=== PATIENT | female | born 1980 | race Hispanic/Latino ===

== ENCOUNTER 2018-03-12 10:17 | Inpatient (IN) | payer SELFPAY ==
[2018-03-12 11:01] LABS: #Lymphocytes 0.6 thou/uL (1.20-3.40); #Monocytes 0.1 thou/uL (0.11-0.59); #Neutrophils 5.4 thou/uL (1.40-6.50); %Basophils 0.5 % (0.0-1.0); %Eosinophils 0.3 % (0.0-10.0); %Lymphocytes 9.9 % (21.0-51.0); %Monocytes 1.3 % (0.0-10.0); Hemoglobin 13.4 g/dL (12.0-16.0); Mean Corpuscular HGB CONC 33.9 g/dL (32.0-36.0); Mean Corpuscular Hemoglobin 30.9 pg (27.0-31.0); Mean Corpuscular Volume 91.1 fl (81.0-99.0); Mean Platelet Volume 7.5 fL (7.4-10.4); Platelet Count 202 thou/uL (130-400); RBC Distribution Width 12.4 % (11.5-14.5); Red Blood Cell (RBC) Count 4.34 mill/uL (4.20-5.40); White Blood Cell (WBC) Count 6.1 thou/uL (4.8-10.8)
[2018-03-12 11:19] LABS: ALT (SGPT) 10 U/L (8-55); AST (SGOT) 11 U/L (5-34); Alkaline Phosphatase 72 U/L (40-150); Anion Gap 20 mmol/L (10-20); BUN (Urea Nitrogen) 12 mg/dL (7.0-18.7); Bilirubin, Total 0.3 mg/dL (0.2-1.2); Calc. Creatinine Clearance 0 mL/min (70-130); Calcium 8.6 mg/dL (7.8-10.44); Carbon Dioxide 13 mmol/L (22-29); Chloride 106 mmol/L (98-107); Estimated GFR-MDRD 60; Globulin 4.1 g/dL (2.4-3.5); Glucose 163 mg/dL (70-105); Potassium 3.5 mmol/L (3.5-5.1); Protein, Total 8.1 g/dL (6.0-8.3); Sodium 135 mmol/L (136-145)
--- NOTE | 2018-03-12 13:10 | ULT ---
PELVIC ULTRASOUND: Date: 03/12/18 COMPARISON: None. HISTORY: Pelvic pain, . TECHNIQUE: Multiplanar Bhandari scale sonographic imaging of the pelvis is obtained with transabdominal and endovagi nal imaging. Ovaries are assessed with color flow and spectral analysis. FINDINGS: Uterus measures in the 11.0 x 5.8 cm range. Right ovary measures 2.3 x 1.6 x 1.3 cm. Left ovary measu res 3.1 x 2.2 x 2.3 cm. Blood flow is seen within both ovaries. An intrauterine gestational sac is noted. A pole is seen. No yolk sac is noted. No free fluid i s seen and there is no subchorionic hemorrhage identified. heart tones could not be obtained at this time. Biometry: CRL: 0.6 cm, 6 weeks/2 days GSD: 1.3 cm, 6 weeks/1 day Average age based on ultrasound is 6 weeks/2 days with estimated date of delivery on 11/03/18. IMPRESSION: Intrauterine gestational sac containing a pole. No heart rate could be obtained at this t alannah. This may be too early to obtain a heart rate. Close follow-up with quantitative beta HCG a t this time and in 48 hours is advised. In addition, a follow-up ultrasound in 48 hours may be benefi cial. CODE T. POS: [facility]
[2018-03-12] MEDS: Sodium Chloride 0.9% 1,000 ML IV SCH ×4 (13:15→22:20)
[2018-03-12 16:04] VITALS: BMI 36.9
[2018-03-12] MEDS: Ondansetron HCl/PF 4 MG/2 ML Vial SLOW IVP SCH ×2 (17:40→23:29)
[2018-03-12] MEDS ORDERED: HumaLOG 300 UNITS/3 ML VIAL SC PRN (17:49)
[2018-03-12] MEDS ORDERED: Ondansetron ODT 4 MG TAB PO PRN (17:49)
[2018-03-12] MEDS ORDERED: Dextrose 50% Abboject 50 ML SYRINGE SLOW IVP PRN (17:49)
[2018-03-12] MEDS ORDERED: Dextrose 5% in Water 1,000 ML IV PRN (17:49)
[2018-03-12] MEDS ORDERED: Ondansetron HCl/PF 4 MG/2 ML Vial IVP PRN (17:49)
[2018-03-12] MEDS: HumaLOG 300 UNITS/3 ML VIAL SC PRN (18:37)
[2018-03-12] MEDS: HYDROcodone/Acetaminophen 5/325 mg Tablet PO PRN (18:41)
[2018-03-12 18:46] LABS: Lactic Acid 1.2 mmol/L (0.5-2.2)
[2018-03-12 18:51] LABS: Anion Gap 21 mmol/L (10-20); BUN (Urea Nitrogen) 11 mg/dL (7.0-18.7); Calc. Creatinine Clearance 88 mL/min (70-130); Calcium 7.8 mg/dL (7.8-10.44); Carbon Dioxide 11 mmol/L (22-29); Chloride 104 mmol/L (98-107); Estimated GFR-MDRD 65; Glucose 300 mg/dL (70-105); Potassium 4.5 mmol/L (3.5-5.1); Sodium 131 mmol/L (136-145)
[2018-03-12 22:05] LABS: Anion Gap 18 mmol/L (10-20); BUN (Urea Nitrogen) 11 mg/dL (7.0-18.7); Calc. Creatinine Clearance 94 mL/min (70-130); Calcium 7.9 mg/dL (7.8-10.44); Carbon Dioxide 13 mmol/L (22-29); Chloride 105 mmol/L (98-107); Estimated GFR-MDRD 70; Glucose 257 mg/dL (70-105); Potassium 4.2 mmol/L (3.5-5.1); Sodium 132 mmol/L (136-145)
[2018-03-12] MEDS: Famotidine 20 MG TAB PO SCH (22:21)
[2018-03-12] MEDS ORDERED: Promethazine HCl 12.5 MG in Sodium Chloride 0.9% 50 ML IVPB PRN (23:54)
[2018-03-13] MEDS: HYDROcodone/Acetaminophen 5/325 mg Tablet PO PRN ×3 (00:01→22:42)
--- NOTE | 2018-03-13 00:58 | HP ---
DATE OF ADMISSION: 03/12/2018 PRIMARY CARE PROVIDER: Divina in [place], [place]. CHIEF COMPLAINT: Abdominal pain with nausea and vomiting. HISTORY OF PRESENT ILLNESS: This is a 37-year-old female, who initially presented to [facility] Emergency Department complaining of persistent and severe left lower quadrant abdominal pain with associated nausea and vomiting. The patient complained of abdominal pain over the last 2-3 days, wo rsening, causing her to seek medical attention. The patient denied any recent trauma, injury, travel history, or family members with similar symptoms. The patient states her last bowel movement was wi thin the last 24 hours and apparently normal. The patient had noticed some blood when wiping herself after urinating. The patient states the pain is localized in the left lower section of her abdomen with some radiation into the flank region. The patient has some associated nausea and vomiting with the episodes of pain. The patient denied taking any specific home remedies to relieve her symptoms. The patient denied any prominent dysuria or urinary tract infections, but does state she has a histo ry of kidney stones in the past; however, was vague on the exact time of the condition. In the emerg ency room, the patient underwent general evaluation including screening metabolic survey showing hype rglycemia and concern for early DKA with elevated beta hydroxybutyrate level and a decreased CO2. Th e patient received aggressive IV fluid hydration as well as antiemetics. The patient also received m orphine sulfate with mild symptomatic relief. The patient underwent a pelvic ultrasound after initia l serum hCG was positive. Ultrasound did show a sac of approximately 6 weeks' gestation in the intrauterine position. No heart rate was detected, however. Patient states she has 6 childre n and 4 previous miscarriages. The patient admits to a longstanding history of diabetes mellitus, cu rrently taking metformin on a regular basis. The patient also has a history of hypothyroidism, on ch ronic levothyroxine, and low dose lisinopril for hypertension. PAST MEDICAL HISTORY: 1. Diabetes mellitus, type 2, on oral hypoglycemics. 2. Hypertension. 3. Hypothyroidism. PAST SURGICAL HISTORY: Reviewed and negative. OBSTETRIC OB HISTORY: 11, para 6 with 4 spontaneous abortions. CURRENT MEDICATIONS: 1. Metformin 1000 mg p.o. b.i.d. 2. Levothyroxine 100 mcg 1 tab p.o. daily, patient unsure of dose. 3. Lisinopril 10 mg p.o. daily. ALLERGIES: PENICILLIN. FAMILY HISTORY: Positive for diabetes. SOCIAL HISTORY: Patient is , accompanied by her spouse and daughter in the hospital. No alco hol, tobacco or illicit drug use. 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 REVIEW OF SYSTEMS: The following complete review of systems was negative, unless otherwise mentioned in the HPI or below: Constitutional: Weight loss or gain, ability to conduct usual activities. Sk in: Rash, itching. Eyes: Double vision, pain. ENT/Mouth: Nose bleeding, neck stiffness, pain, te nderness. Cardiovascular: Palpitations, dyspnea on exertion, orthopnea. Respiratory: Shortness of breath, wheezing, cough, hemoptysis, fever, or night sweats. Gastrointestinal: Poor appetite, abdo jyotsna pain, heartburn, nausea, vomiting, constipation, or diarrhea. Genitourinary: Urgency, frequen cy, dysuria, nocturia. Musculoskeletal: Pain, swelling. Neurologic/Psychiatric: Anxiety, depressi on. Allergy/Immunologic: Skin rash, bleeding tendency. Otherwise, negative except as stated per HP I. PHYSICAL EXAMINATION: VITAL SIGNS: On admission, blood pressure 166/103, pulse 166, respiratory rate 26, temperature 99.4 degrees Fahrenheit, O2 saturation 98% on room air. GENERAL APPEARANCE: This is a 37-year-old female, alert, and answers questions in moderate distress. HEENT EXAM: Oral mucosa dry appearing. Nares patent. Pupils equal, round, and reactive to light an d accommodation. Extraocular muscles are intact. Grimacing on exam. NECK: Supple, no adenopathy, no thyromegaly. CHEST: Lungs are clear to auscultation bilaterally. CARDIOVASCULAR EXAM: S1 and S2 with tachycardia. No murmur, rub or gallop appreciated. ABDOMEN: Tender to palpation diffusely with increased tenderness noted in the left lower quadrant an d left flank and CVA region. Mild guarding noted. Bowel sounds are positive, but diminished. No pa lpable mass. EXTREMITIES: Warm and dry with fair turgor. No clubbing, cyanosis or asymmetric edema appreciated. Pulses palpable distally at the dorsalis pedis and posterior tibial arteries bilaterally. Capillary refill less than 2 seconds. NEUROLOGIC EXAM: Cranial nerves II-XII are grossly intact. No focal or lateralizing signs appreciat ed. The patient not observed ambulatory during the exam. PERTINENT LABORATORY AND X-RAY FINDINGS: CO2 of 13, creatinine 1.03. LFTs within normal limits. Se rum beta hCG positive. Total beta hCG 11,690 and lipase 31. Lactic acid level less than 1.5. Initi al CBC showed a white blood cell count of 13.9, hemoglobin 13.7, hematocrit 40.5, platelet count 213 with 88% neutrophils. Urinalysis showed positive glucose, ketones, and protein. Urine microscopy sh ows 0-2 wbcs per high power field and 2-5 rbcs per high powered field. No bacteria noted. Rare hyal in casts. Pelvic ultrasound dated 03/12/2018 showed intrauterine gestational sac at 6 weeks plus or minus 2 days with estimated date of delivery 11/03/2018. Bilateral ovaries with normal blood flow. No subchorionic hemorrhage noted. heart tones not obtained. ASSESSMENT AND PLAN: 1. Diabetic ketoacidosis, mild. We will continue IV fluid hydration with overall improvement in glu cose trend with IV fluids. No current need for insulin infusion. Repeat beta hydroxybutyrate level in the a.m. Check A1c level. Continue modified diabetic ketoacidosis protocol. 2. Left lower quadrant abdominal pain, exact etiology is unclear currently. We will continue suppor tive management including morphine sulfate 2 mg IV q.4 hours p.r.n. Continue antiemetics as clinical ly indicated. Continue IV fluids at 200 mL per hour. Differential includes potential ureterolithias is versus diverticulitis or potential infectious process. We will continue to monitor clinical respo nse to supportive management. 3. Intrauterine of 6 weeks' gestation. We will consult OB hospitalist for evaluation. Re commend serial quantitative hCG q.48 hours given the patient's presentation and questionable threaten ed . 4. Diabetes mellitus, type 2. Continue insulin sliding scale for reflexive coverage. Hold metformi n. Check A1c level in the a.m. ADA diet when tolerating p.o. 5. Metabolic acidosis. Suspect multifactorial in conjunction with presentation with early diabetic ketoacidosis, dehydration, and ongoing metformin use. We will repeat CO2 level in the a.m. 6. Hypothyroidism. Check TSH level in the a.m. Confirm home levothyroxine dose. 7. Prophylaxis. Sequential compression devices while in bed. Pepcid 20 mg p.o. b.i.d. 8. Code status is FULL. Surrogate medical decision maker is patient's spouse.
[2018-03-13] MEDS: Sodium Chloride 0.9% 1,000 ML IV SCH ×5 (03:00→23:10)
[2018-03-13 05:32] LABS: Band 22 % (5-11); Hemoglobin 11.2 g/dL (12.0-16.0); Lymphocytes 19 % (21-51); MDiff Complete? YES; Mean Corpuscular HGB CONC 33.7 g/dL (32.0-36.0); Mean Corpuscular Hemoglobin 31.4 pg (27.0-31.0); Mean Corpuscular Volume 92.9 fl (81.0-99.0); Mean Platelet Volume 7.8 fL (7.4-10.4); Monocytes 4 % (0-10); Neutrophil 55 % (42-75); PLT Morphology Comment Appears Adequate; Platelet Count 187 thou/uL (130-400); RBC Distribution Width 12.6 % (11.5-14.5); Red Blood Cell (RBC) Count 3.56 mill/uL (4.20-5.40); White Blood Cell (WBC) Count 12.2 thou/uL (4.8-10.8)
[2018-03-13 05:47] LABS: ALT (SGPT) 8 U/L (8-55); AST (SGOT) 9 U/L (5-34); Albumin 2.9 g/dL (3.5-5.0); Alkaline Phosphatase 56 U/L (40-150); Anion Gap 17 mmol/L (10-20); BUN (Urea Nitrogen) 11 mg/dL (7.0-18.7); Bilirubin, Total 0.2 mg/dL (0.2-1.2); Calc. Creatinine Clearance 110 mL/min (70-130); Calcium 7.3 mg/dL (7.8-10.44); Carbon Dioxide 10 mmol/L (22-29); Chloride 109 mmol/L (98-107); Estimated GFR-MDRD 84; Globulin 2.9 g/dL (2.4-3.5); Glucose 255 mg/dL (70-105); Potassium 3.8 mmol/L (3.5-5.1); Protein, Total 5.8 g/dL (6.0-8.3); Sodium 132 mmol/L (136-145)
[2018-03-13] MEDS: HumaLOG 300 UNITS/3 ML VIAL SC PRN ×2 (06:47→08:45)
--- NOTE | 2018-03-13 08:05 | PDOC.PN ---
- Subjective Encounter Start Date: 03/13/18 Encounter Start Time: 07:50 Subjective: f/u DKA with persistent acidosis after tx for mild exacerbation. Nausea -: improved this am. Hx of prior insulin use but only on oral hypoglycemics. - Objective Resuscitation Status: Resuscitation Status FULL:Full Resuscitation MAR Reviewed: Yes Vital Signs & Weight: Vital Signs (12 hours) Temp Pulse Resp BP Pulse Ox 03/13/18 07:30 97.8 F 90 16 91/57 L 97 03/13/18 04:00 97.8 F 86 16 90/56 L 96 03/13/18 00:00 98.3 F 95 16 113/77 97 Weight Weight 153 lb 6 oz I&O: 03/12/18 03/13/18 03/14/18 06:59 06:59 06:59 Intake Total 2590 Output Total 50 Balance 2540 Result Diagrams: 03/13/18 04:50 03/13/18 04:50 Additional Labs: Accuchecks 03/13/18 03/13/18 03/12/18 05:10 00:44 20:47 POC Glucose 231 H 229 H 246 H 03/12/18 03/12/18 18:04 16:27 POC Glucose 271 H 315 H Microbiology 03/12/18 04:00 Venous blood - Right Arm Blood Culture - Preliminary Gram Negative [facility] Tests 03/12/18 03/12/18 03/12/18 10:49 10:49 10:49 WBC 6.1 Band Neuts % (Manual) Sodium Carbon Dioxide Hemoglobin A1c TSH 3rd Generation Total Beta HCG 40404.48 B-Hydroxybutyrate 0.68 H 03/12/18 03/13/18 03/13/18 21:32 04:50 04:50 WBC Band Neuts % (Manual) 22 H Sodium 132 L Carbon Dioxide 13 L Hemoglobin A1c TSH 3rd Generation Total Beta HCG B-Hydroxybutyrate 4.08 H 03/13/18 03/13/18 04:50 04:50 WBC Band Neuts % (Manual) Sodium Carbon Dioxide Hemoglobin A1c 15.0 H TSH 3rd Generation 3.4481 Total Beta HCG B-Hydroxybutyrate Phys Exam - Physical Examination alert, tired appearing HEENT: PERRLA, sclera anicteric, oral pharynx no lesions Neck: no nodes, no JVD, supple, full ROM Respiratory: no wheezing, no rales, no rhonchi, clear to auscultation bilateral S1, S2 Cardiovascular: RRR, no significant murmur, no rub, gallop TTP in LLQ, no rebound, no mass Gastrointestinal: soft, no distention, positive bowel sounds Musculoskeletal: no edema, pulses present Neurological: non-focal, normal sensation, moves all 4 limbs Psychiatric: normal affect, A&O x 3 Skin: no rash, normal turgor, cap refill <2 seconds Dx/Plan (1) DKA (diabetic ketoacidosis) Code(s): E13.10 - OTH DIABETES MELLITUS WITH KETOACIDOSIS WITHOUT COMA Status : Acute Qualifiers: Diabetes mellitus type: type 2 Comment: Persistent acidosis despite IV hydration, start Insulin gtt, transfer to [facility], continue DKA protocol (2) Nausea & vomiting Code(s): R11.2 - NAUSEA WITH VOMITING, UNSPECIFIED Status: Acute Comment: Improved with IVF's and antiemetics, continue supportive care (3) Bacteremia due to Gram-negative bacteria Code(s): R78.81 - BACTEREMIA Status: Acute Comment: Suspected from urinary source, start Rocephin 2gm IV daily, await final cx results (4) LLQ abdominal pain Code(s): R10.32 - LEFT LOWER QUADRANT PAIN Status: Acute Comment: ? etiology , concern for UTI and threatened given IUP, pain control, serial exams (5) Metabolic acidosis Code(s): E87.2 - ACIDOSIS Status: Acute Comment: Persistent, see #1, Insulin gtt (6) Hyponatremia Code(s): E87.1 - HYPO-OSMOLALITY AND HYPONATREMIA Status: Acute Comment: Secondary to poor po intake, continue IV NS, serial Na+ (7) Intrauterine Code(s): Z34.90 - ENCNTR FOR SUPRVSN OF NORMAL , UNSP, UNSP TRIMESTER Status: Acute Comment: 6 weeks gestation by pelvic sono, threatened ab currently, serial beta HCG, OB consult appreciated (8) DM ketoacidosis type II, uncontrolled Code(s): E11.10 - TYPE 2 DIABETES MELLITUS WITH KETOACIDOSIS WITHOUT COMA Status: Chronic Qualifiers: Diabetes mellitus manager hardware insulin use: without manager hardware use Comment: See above, A1C 15, DM teaching, likely will need Insulin for home therapy, ISS when off gtt - Plan continue antibiotics, DVT proph w/SCDs Transfer to [facility] today secondary to DKA -: Start Insulin gtt -: Continue IVF's and DKA protocol -: Start Rocephin 2gm IV daily given + GNR blood cx -: Appreciate OB assistance * AM lab: BMP, CBC * Serial quant beta HCG q48h
--- NOTE | 2018-03-13 08:06 | CON ---
DATE OF CONSULTATION: 03/13/2018 REFERRING PHYSICIAN: Dr. Geremias Villalta. CHIEF COMPLAINT: New intrauterine and threatened . HISTORY OF PRESENT ILLNESS: The patient is a 37-year-old G11, P6 who was admitted to the [facility]. In the process of her workup and evaluation, the patient was noted to have a quantitative HCG of 11,000 and an intrauterine confirmed by ultrasound with a pole, but no heart tone s detected. Patient reports that she had a positive home test about 2-3 weeks ago. She re ports that her blood sugars have not been in control and her other miscarriages are associated also w ith poor blood sugars. She reports yesterday she started having spotting and today she is bleeding a little bit more when she goes to the bathroom and wipes, but she denies any bleeding like a period a t this time or heavy cramps. She has been having some left lower quadrant pain, but reports history of bad constipation. Her last bowel movement was yesterday, but she reports that they were like pebb les. She denies strong menstrual cramps at this time. PAST MEDICAL HISTORY: 1. Diabetes type 2, on metformin. 2. Hypertension. 3. Hypothyroidism. PAST SURGICAL HISTORY: Negative. OBSTETRIC HISTORY: She is a 4, para 6 with 4 SABs. MEDICATIONS: Metformin 1000 mg twice a day, levothyroxine 100 mcg daily, lisinopril 10 mg daily. IN-HOSPITAL MEDICATIONS: Include hydrocodone p.r.n., insulin, and Zofran p.r.n. ALLERGIES: PENICILLIN. FAMILY HISTORY: Diabetes. SOCIAL HISTORY: Denies drug, alcohol or tobacco use. REVIEW OF SYSTEMS: The patient reports fever at home and headache. Denies chest pain or shortness o f breath. Has had nausea and vomiting. Reports constipation. Denies diarrhea. Denies new skin temo h. Denies heavy vaginal bleeding, urinary urgency or frequency. PHYSICAL EXAMINATION: VITAL SIGNS: Blood pressure is 91/57, temperature 97.8, pulse of 90, respiratory rate of 16, satting 97% on room air. GENERAL: She appears to be in no acute distress. She is alert and oriented, cooperative and pleasan t to interact with. HEAD: Normocephalic, atraumatic. LUNGS: Clear to auscultation bilaterally. HEART: Has a regular rate and rhythm. ABDOMEN: Soft. She does have some tenderness to palpation in the left lower quadrant. No suprapubi c tenderness. EXTREMITIES: Nontender, nonedematous. GENITOURINARY: Has been deferred. LABORATORY DATA: White count of 12.2, hemoglobin 11.2, platelets 187,000, and blood sugar 231. TSH is 3.4. Sodium 132, creatinine 0.77. Beta hCG 11,690 performed on 03/12/2018 at 10:50 a.m. IMAGING: A pelvic ultrasound was performed showing a gestational sac and a pole without heart tones recorded. Documentation on the report indicates that it may be too early for the heart t ones to be seen. ASSESSMENT AND PLAN: The patient is a 37-year-old female admitted for early diabetic ketoacidosis an d uncontrolled diabetes. She has either a missed or threatened at this point with her bleeding and no heart tones detected. I would confirm radiology's recommendations for a quantita tive HCG to be performed tomorrow, which I have ordered and we can follow up with those results with the patient. Patient does reports she is having bleeding, which may progress and the patient may spo ntaneously miscarry. Certainly notify us if they have any concerns prior to tomorrow.
[2018-03-13] MEDS: Famotidine 20 MG TAB PO SCH ×2 (08:36→20:56)
[2018-03-13] MEDS ORDERED: cefTRIAXone\\ROCEPHIN 2 GM in Sodium Chloride 0.9% 100 ML IVPB SCH (08:45)
[2018-03-13] MEDS ORDERED: Sodium Chloride 0.9% 1,000 ML IV PRN ×4 (10:17)
[2018-03-13] MEDS ORDERED: NS 0.9% w/ 20 MEQ KCL 1,000 ML IV PRN ×2 (10:17)
[2018-03-13] MEDS ORDERED: CCU Electrolyte Replacement 1 EACH IVPB ONE (10:17)
[2018-03-13] MEDS ORDERED: Dextrose 5 %-0.45 % NaCl 1,000 ML IV PRN (10:17)
[2018-03-13] MEDS ORDERED: Potassium Chloride 20 MEQ TAB PO PRN (10:22)
[2018-03-13] MEDS ORDERED: Magnesium Oxide 400 MG TAB PO PRN ×2 (10:22)
[2018-03-13] MEDS ORDERED: Potassium Phosphate 9 MMOL in Sodium Chloride 0.9% 100 ML IVPB PRN (10:22)
[2018-03-13] MEDS ORDERED: Potassium Chloride 40 MEQ in Sodium Chloride 0.9% 250 ML 250 ML IVPB PRN (10:22)
[2018-03-13] MEDS ORDERED: Potassium Phosphate 12 MMOL in Sodium Chloride 0.9% 250 ML 250 ML IV PRN (10:22)
[2018-03-13] MEDS ORDERED: Potassium Chloride 40 MEQ in Premix Bag 1 BAG IVPB PRN (10:22)
[2018-03-13] MEDS ORDERED: Magnesium 2 GM/NS 0.9% 100 ML 2 GM in Premix Bag 1 BAG IVPB PRN (10:22)
[2018-03-13] MEDS ORDERED: CCU ELECTROLYTE REPLACEMENT PROTOCOL FS PRN (10:22)
[2018-03-13] MEDS ORDERED: Potassium Phosphate 15 MMOL in Sodium Chloride 0.9% 250 ML 250 ML IV PRN (10:22)
[2018-03-13 11:45] LABS: Anion Gap 9 mmol/L (10-20); BUN (Urea Nitrogen) 9 mg/dL (7.0-18.7); Calc. Creatinine Clearance 114 mL/min (70-130); Calcium 7.3 mg/dL (7.8-10.44); Carbon Dioxide 16 mmol/L (22-29); Chloride 110 mmol/L (98-107); Estimated GFR-MDRD 88; Glucose 266 mg/dL (70-105); Potassium 3.4 mmol/L (3.5-5.1); Sodium 132 mmol/L (136-145)
[2018-03-13] MEDS: D5 1/2 NS w/20 mEq KCL 1,000 ML IV PRN ×3 (13:43→21:57)
[2018-03-13 14:31] LABS: Anion Gap 12 mmol/L (10-20); BUN (Urea Nitrogen) 8 mg/dL (7.0-18.7); Calc. Creatinine Clearance 123 mL/min (70-130); Calcium 7.3 mg/dL (7.8-10.44); Carbon Dioxide 14 mmol/L (22-29); Chloride 111 mmol/L (98-107); Estimated GFR-MDRD Greater than 90; Glucose 198 mg/dL (70-105); Sodium 134 mmol/L (136-145)
[2018-03-13 18:36] LABS: Anion Gap 11 mmol/L (10-20); BUN (Urea Nitrogen) 7 mg/dL (7.0-18.7); Calc. Creatinine Clearance 141 mL/min (70-130); Calcium 7.2 mg/dL (7.8-10.44); Carbon Dioxide 15 mmol/L (22-29); Chloride 112 mmol/L (98-107); Estimated GFR-MDRD Greater than 90; Glucose 112 mg/dL (70-105); Potassium 3.4 mmol/L (3.5-5.1); Sodium 135 mmol/L (136-145)
[2018-03-14] MEDS: Sodium Chloride 0.9% 1,000 ML IV SCH ×6 (01:35→19:23)
[2018-03-14] MEDS: D5 1/2 NS w/20 mEq KCL 1,000 ML IV PRN ×5 (01:50→23:17)
[2018-03-14 05:15] LABS: BUN (Urea Nitrogen) Less than 4 mg/dL (7.0-18.7); Calc. Creatinine Clearance 151 mL/min (70-130); Calcium 6.6 mg/dL (7.8-10.44); Chloride 107 mmol/L (98-107); Estimated GFR-MDRD Greater than 90; Glucose 125 mg/dL (70-105); Potassium 3.7 mmol/L (3.5-5.1); Sodium 124 mmol/L (136-145)
[2018-03-14 05:23] LABS: Carbon Dioxide 9 mmol/L (22-29)
[2018-03-14 05:25] LABS: Anion Gap 12 mmol/L (10-20)
[2018-03-14 05:38] LABS: Band 2 % (5-11); Eosinophils 1 % (0-10); Hemoglobin 11.1 g/dL (12.0-16.0); Lymphocytes 17 % (21-51); MDiff Complete? YES; Mean Corpuscular HGB CONC 33.7 g/dL (32.0-36.0); Mean Corpuscular Hemoglobin 30.8 pg (27.0-31.0); Mean Corpuscular Volume 91.6 fl (81.0-99.0); Mean Platelet Volume 8.8 fL (7.4-10.4); Monocytes 3 % (0-10); Neutrophil 74 % (42-75); PLT Morphology Comment Appears Adequate; Platelet Count 151 thou/uL (130-400); RBC Distribution Width 12.7 % (11.5-14.5); RBC Morphology Normal; Reactive Lymphocytes 3 % (0-10); White Blood Cell (WBC) Count 9.8 thou/uL (4.8-10.8)
[2018-03-14] MEDS ORDERED: 1/2 NS W IV SCH (06:00)
[2018-03-14] MEDS ORDERED: D5 IV SCH (06:00)
[2018-03-14] MEDS ORDERED: SODIUM BICARBONATE IV SCH (06:00)
[2018-03-14] MEDS ORDERED: KCL IV SCH (06:00)
[2018-03-14] MEDS: Acetaminophen 500 MG TAB PO PRN ×2 (07:11→15:10)
[2018-03-14] MEDS: cefTRIAXone\\ROCEPHIN 2 GM in Sodium Chloride 0.9% 100 ML IVPB SCH ×2 (09:05→13:08)
[2018-03-14] MEDS: Famotidine 20 MG TAB PO SCH ×2 (09:11→20:23)
--- NOTE | 2018-03-14 10:36 | PDOC.PN ---
- Subjective Encounter Start Date: 03/14/18 Encounter Start Time: 10:30 Subjective: f/u DKA and E. coli bacteremia. Overall feeling better and no N/V. No abd -: pain currently. + BM today. States hungry and wants to eat. - Objective Resuscitation Status: Resuscitation Status FULL:Full Resuscitation MAR Reviewed: Yes Vital Signs & Weight: Vital Signs (12 hours) Temp Pulse Resp BP Pulse Ox 03/14/18 07:28 99.9 F H 108 H 18 103/63 96 03/14/18 03:52 99.1 F 99 16 107/73 97 03/13/18 23:45 100.5 F H 117 H 16 102/61 98 Weight Weight 153 lb 6 oz I&O: 03/13/18 03/14/18 03/15/18 06:59 06:59 06:59 Intake Total 2590 8939 0 Output Total 50 300 0 Balance 2540 8639 0 Result Diagrams: 03/14/18 04:23 03/14/18 04:23 Additional Labs: Accuchecks 03/14/18 03/14/18 03/14/18 10:13 09:10 08:00 POC Glucose 240 H 297 H 208 H 03/14/18 03/14/18 03/14/18 07:16 06:06 05:06 POC Glucose 188 H 160 H 133 H 03/14/18 03/14/18 03/14/18 04:08 03:07 02:05 POC Glucose 109 133 H 204 H 03/14/18 03/14/18 03/13/18 01:12 00:06 23:05 POC Glucose 246 H 272 H 266 H 03/13/18 03/13/18 03/13/18 22:03 21:06 20:00 POC Glucose 199 H 188 H 168 H 03/13/18 03/13/18 03/13/18 18:50 17:57 17:17 POC Glucose 136 H 114 H 157 H 03/13/18 03/13/18 03/13/18 16:26 15:12 14:14 POC Glucose 187 H 173 H 196 H 03/13/18 03/13/18 03/13/18 13:10 12:06 11:04 POC Glucose 154 H 238 H 263 H 03/13/18 10:05 POC Glucose 207 H Microbiology 03/12/18 04:00 Venous blood - Right Arm Blood Culture - Final Escherichia coli 03/12/18 04:00 Venous blood - Right Arm Blood Culture - Preliminary Gram Negative [facility] Tests 03/12/18 03/12/18 03/12/18 10:49 10:49 10:49 WBC 6.1 Band Neuts % (Manual) Sodium Carbon Dioxide Hemoglobin A1c TSH 3rd Generation Total Beta HCG 59771.48 B-Hydroxybutyrate 0.68 H 03/12/18 03/13/18 03/13/18 21:32 04:50 04:50 WBC 12.2 H Band Neuts % (Manual) 22 H Sodium 132 L Carbon Dioxide 13 L Hemoglobin A1c TSH 3rd Generation Total Beta HCG B-Hydroxybutyrate 4.08 H 03/13/18 03/13/18 03/13/18 04:50 04:50 10:45 WBC Band Neuts % (Manual) Sodium Carbon Dioxide Hemoglobin A1c 15.0 H TSH 3rd Generation 3.4481 Total Beta HCG B-Hydroxybutyrate 1.29 H 03/13/18 03/13/18 03/14/18 13:59 18:10 04:23 WBC Band Neuts % (Manual) 2 L Sodium 135 L Carbon Dioxide 15 L Hemoglobin A1c TSH 3rd Generation Total Beta HCG B-Hydroxybutyrate 0.76 H EKG Reviewed by me: Yes (Tele - SR in 90's) Phys Exam - Physical Examination Constitutional: NAD alert, responsive HEENT: PERRLA, sclera anicteric, oral pharynx no lesions Neck: no nodes, no JVD, supple, full ROM Respiratory: no wheezing, no rales, no rhonchi, clear to auscultation bilateral S1, S2 Cardiovascular: RRR, no significant murmur, no rub, gallop Gastrointestinal: soft, non-tender, no distention, positive bowel sounds Musculoskeletal: no edema, pulses present Neurological: non-focal, normal sensation, moves all 4 limbs Psychiatric: normal affect, A&O x 3 Skin: no rash, normal turgor, cap refill <2 seconds Dx/Plan (1) DKA (diabetic ketoacidosis) Code(s): E13.10 - OTH DIABETES MELLITUS WITH KETOACIDOSIS WITHOUT COMA Status : Acute Qualifiers: Diabetes mellitus type: type 2 Comment: Persistent acidosis despite IV hydration, start Insulin gtt, transfer to IMCU, slow improvement with beta-hydroxy trending down, repeat BMP today, continue insulin gtt, start po intake (2) Nausea & vomiting Code(s): R11.2 - NAUSEA WITH VOMITING, UNSPECIFIED Status: Acute Comment: Resolved, continue antiemetics prn (3) Bacteremia due to Gram-negative bacteria Code(s): R78.81 - BACTEREMIA Status: Acute Comment: Suspected from urinary source, start Rocephin 2gm IV daily, E. coli on 1 of 3 blood cx, continue Rocephin and monitor response (4) LLQ abdominal pain Code(s): R10.32 - LEFT LOWER QUADRANT PAIN Status: Acute Comment: ? etiology , concern for UTI and threatened given IUP, pain control, serial exams , resolving (5) Metabolic acidosis Code(s): E87.2 - ACIDOSIS Status: Acute Comment: Persistent, see #1, Insulin gtt, repeat CO2 today (6) Hyponatremia Code(s): E87.1 - HYPO-OSMOLALITY AND HYPONATREMIA Status: Acute Comment: Secondary to poor po intake, continue IV NS, serial Na+ (7) Intrauterine Code(s): Z34.90 - ENCNTR FOR SUPRVSN OF NORMAL , UNSP, UNSP TRIMESTER Status: Acute Comment: 6 weeks gestation by pelvic sono, threatened ab currently, serial beta HCG, OB consult appreciated (8) DM ketoacidosis type II, uncontrolled Code(s): E11.10 - TYPE 2 DIABETES MELLITUS WITH KETOACIDOSIS WITHOUT COMA Status: Chronic Qualifiers: Diabetes mellitus intermediate school teacher insulin use: without intermediate school teacher use Comment: See above, A1C 15, DM teaching, likely will need Insulin for home therapy, ISS when off gtt - Plan continue antibiotics, out of bed/ambulate, DVT proph w/SCDs Stable overall -: Follow metabolic parameters, continue Insulin gtt -: Start ADA diet -: Continue Rocephin due to E. coli bacteremia -: AM lab: BMP * .
[2018-03-14 12:17] LABS: Anion Gap 15 mmol/L (10-20); BUN (Urea Nitrogen) Less than 4 mg/dL (7.0-18.7); Calc. Creatinine Clearance 139 mL/min (70-130); Calcium 6.7 mg/dL (7.8-10.44); Carbon Dioxide 14 mmol/L (22-29); Chloride 112 mmol/L (98-107); Estimated GFR-MDRD Greater than 90; Glucose 269 mg/dL (70-105); Potassium 3.7 mmol/L (3.5-5.1); Sodium 137 mmol/L (136-145)
--- NOTE | 2018-03-14 13:02 | CON ---
DATE OF CONSULTATION: 03/14/2018 CONSULTING PHYSICIAN: Hospitalist group. REASON FOR CONSULTATION: Diabetic ketoacidosis. HISTORY OF PRESENT ILLNESS: This is a 37-year-old female who came in with nausea and vomiting of sev eral days' duration. She is a known diabetic who has been taking metformin to manage her type 2 diab etes. She was 6 weeks' at the time of admission. She has been having some bleeding and it appears she may have miscarried this . She has been on insulin drip for the last 24 hours. PAST MEDICAL HISTORY: 1. Diabetes mellitus type 2. 2. Hypertension. 3. Hypothyroidism. PAST SURGICAL HISTORY: Negative. OB HISTORY: She has 6 children except 4 spontaneous abortions. MEDICATIONS: Metformin, levothyroxine, lisinopril. ALLERGIES: PENICILLIN. FAMILY MEDICAL HISTORY: Diabetes. SOCIAL HISTORY: Nonsmoker, does not consume alcohol. REVIEW OF SYSTEMS: A 12-point review of systems is otherwise negative. PHYSICAL EXAMINATION: VITAL SIGNS: Temperature 99.9, pulse 108, respirations 18, O2 sat 96%, blood pressure 103/63. GENERAL: She is awake, alert, and in no acute distress at this time. HEENT: Unremarkable. NECK: Without adenopathy or JVD. CHEST: Clear. CARDIOVASCULAR: S1, S2 regular. ABDOMEN: Soft, nontender. EXTREMITIES: No clubbing, cyanosis, or edema. LABORATORY DATA: Sodium 134, potassium 3.0, chloride 111, CO2 14, BUN 8, creatinine 0.6, glucose 198 , white blood cell count 9.8, hematocrit 33, platelet count 151, beta hydroxybutyrate 0.7. ASSESSMENT: 1. Diabetic ketoacidosis in a type 2 diabetic - likely potentiated by metformin. 2. Continuing the acidosis which may be a concurrent renal tubular acidosis. 3. Threatened . PLAN: She is continuing IV fluid hydration by the DKA protocol. Her insulin drip is continuing. Sh e is on empiric antibiotics. I agree with current management. We will follow distantly with you.
[2018-03-14] MEDS: HYDROcodone/Acetaminophen 5/325 mg Tablet PO PRN (22:33)
[2018-03-15 04:50] LABS: Anion Gap 9 mmol/L (10-20); BUN (Urea Nitrogen) Less than 4 mg/dL (7.0-18.7); Calc. Creatinine Clearance 148 mL/min (70-130); Carbon Dioxide 21 mmol/L (22-29); Chloride 111 mmol/L (98-107); Estimated GFR-MDRD Greater than 90; Glucose 168 mg/dL (70-105); Potassium 3.8 mmol/L (3.5-5.1); Sodium 137 mmol/L (136-145)
[2018-03-15] MEDS: Sodium Chloride 0.9% 1,000 ML IV SCH ×2 (05:57→05:58)
[2018-03-15] MEDS: Acetaminophen 500 MG TAB PO PRN ×2 (08:27→18:20)
[2018-03-15] MEDS: Famotidine 20 MG TAB PO SCH (08:27)
[2018-03-15] MEDS: cefTRIAXone\\ROCEPHIN 2 GM in Sodium Chloride 0.9% 100 ML IVPB SCH (08:28)
[2018-03-15] MEDS: D5 1/2 NS w/20 mEq KCL 1,000 ML IV PRN (08:30)
--- NOTE | 2018-03-15 10:57 | PDOC.PN ---
- Subjective Encounter Start Date: 03/15/18 (f/u dka) Encounter Start Time: 10:55 Subjective: Pt reports feeling better. Deneis any nausea. Does have some dizzines/ -: weakness. Denies diarrhea/cp/sob - Objective Resuscitation Status: Resuscitation Status FULL:Full Resuscitation Vital Signs & Weight: Vital Signs (12 hours) Temp Pulse Resp BP Pulse Ox 03/15/18 07:56 99.2 F 98 16 98 03/15/18 07:30 99.2 F 98 16 106/73 97 03/15/18 03:45 99.3 F 102 H 17 105/74 97 Weight Weight 153 lb 6 oz I&O: 03/14/18 03/15/18 03/16/18 06:59 06:59 06:59 Intake Total 8939 5533.4 240 Output Total 300 0 0 Balance 8639 5533.4 240 Result Diagrams: 03/14/18 04:23 03/15/18 04:25 Additional Labs: Accuchecks 03/15/18 03/15/18 03/15/18 10:11 09:02 08:07 POC Glucose 214 H 229 H 193 H 03/15/18 03/15/18 03/15/18 07:02 06:29 05:28 POC Glucose 223 H 206 H 197 H 03/15/18 03/15/18 03/15/18 04:20 03:21 02:25 POC Glucose 143 H 143 H 123 H 03/15/18 03/15/18 03/14/18 01:19 00:28 23:17 POC Glucose 135 H 125 H 140 H 03/14/18 03/14/18 03/14/18 22:17 21:20 20:18 POC Glucose 150 H 157 H 210 H 03/14/18 03/14/18 03/14/18 19:34 18:12 17:20 POC Glucose 223 H 186 H 105 03/14/18 03/14/18 03/14/18 16:24 15:04 14:09 POC Glucose 98 163 H 191 H 03/14/18 03/14/18 03/14/18 13:08 12:12 10:56 POC Glucose 204 H 256 H 233 H EKG Reviewed by me: Yes (tele - sinus 90-110's) Phys Exam - Physical Examination Constitutional: NAD Respiratory: no wheezing, no rhonchi faint rales at right base Cardiovascular: RRR, no significant murmur Gastrointestinal: soft, non-tender, no distention, positive bowel sounds slight non-pitting edema in hands Neurological: non-focal, moves all 4 limbs Psychiatric: normal affect, A&O x 3 Skin: no rash Dx/Plan (1) Bacteremia due to Gram-negative bacteria Code(s): R78.81 - BACTEREMIA Status: Acute Comment: Suspected from urinary source, start Rocephin 2gm IV daily, E. coli on 1 of 3 blood cx, continue Rocephin and monitor response (2) Hypothyroid Code(s): E03.9 - HYPOTHYROIDISM, UNSPECIFIED Status: Chronic Qualifiers: Hypothyroidism type: unspecified Qualified Code(s): E03.9 - Hypothyroidism , unspecified (3) DKA (diabetic ketoacidosis) Code(s): E13.10 - OTH DIABETES MELLITUS WITH KETOACIDOSIS WITHOUT COMA Status : Resolved Qualifiers: Diabetes mellitus type: type 2 (4) Intrauterine Code(s): Z34.90 - ENCNTR FOR SUPRVSN OF NORMAL , UNSP, UNSP TRIMESTER Status: Acute Comment: 6 weeks gestation by pelvic sono, threatened ab currently, serial beta HCG, OB consult appreciated (5) DM ketoacidosis type II, uncontrolled Code(s): E11.10 - TYPE 2 DIABETES MELLITUS WITH KETOACIDOSIS WITHOUT COMA Status: Chronic Qualifiers: Diabetes mellitus ocean transportation intermediary insulin use: without ocean transportation intermediary use - Plan * Appreciate OB monitoring IUP - hcg levels slightly down * * DKA resolved - d/c insulin gtt and ivf. Start lantus. Calculated about 95 units insulin over 24 hours - will start with 30 units bid of lantus and moderate scale short acting insulin with meals. Hold oral meds for now. * * On rocephin for 1 of 3 positive blood cultures - this one from outside this hospital (have to pick prior labs to review it). The other 2 blood cultures from here are negative. * * resume home levothyroxine * * case management for assistance with affording meds * * falls precautions, transfer to medical floor * * dvt prophy - scd's * gi prophy - not indicated, taking PO * code status full * * reviewed plan of care with patient, no questions or further needs at end of eval. Pt remains at high risk in current condition * * 21:37 - called and spoke with RN - nighttime blood sugar is 170. Given that patient received 30 units lantus earlier today, will d/c the evening dose. Also placed a communication order for RN to call MD in AM if blood sugar less than 150 and hold the lantus. The goal is to avoid hypoglycemia. Pt is ordered moderate short-acting insulin scale with meals and bedtime insulin. RN has not given the lantus - agrees with plan, no questions at end of call.
[2018-03-15] MEDS ORDERED: Insulin Glargine 30 UNITS in Pre-Filled Syringe 1 EACH SC SCH ×2 (11:00→21:00)
[2018-03-15] MEDS ORDERED: Misoprostol 100 MCG TAB VAG SCH (15:15)
--- NOTE | 2018-03-15 16:17 | PRG ---
DATE OF SERVICE: 03/15/2018 HISTORY OF PRESENT ILLNESS: The patient is a 37-year-old female who was admitted for diabetic ketoac idosis and was noted to have an intrauterine with evidence of threatened AB versus a missed AB due to onset of bleeding and no heart tones seen on ultrasound. A repeat quantitative HCG was performed 2 days following the initial blood draw and was noted to have inappropriate rise levels went from 11,690 to 11,303 two days later. I have reviewed these findings with Ms. Tapia and donny ricks reports she continues to have some light bleeding and starting to have cramping today. We did d iscuss the possibility of augmenting this process of miscarriage with Cytotec while she is here in [facility]. This, she would have less to worry about when she goes home. However, at the time of my discussion Ms. Tapia today, she was in the ICU. I did share with her I prefer to do this once marta gets back to the hospital floor and has her acute issues resolved. Later the afternoon, the patien t was transferred out to regular hospital floor room and at that time, patient did share with me that she would like to proceed with the Cytotec as discussed. OBJECTIVE: At time of this afternoon, VITAL SIGNS: Blood pressure of 111/55, temperature 98.2, pulse of 94, respiratory rate of 20, sattin g 100% on room air. GENERAL: She appeared to be in no acute distress. She is alert and oriented, cooperative and pleasa nt to interact with. LABORATORY DATA: Most recent glucose that I can see documented is 168. PLAN: We will be placing 800 mcg of Cytotec or misoprostol vaginally and expect within the next 24 h ours for Ms. Tapia to miscarry. She is now on the floor where we can monitor her close ly.
[2018-03-15] MEDS: HumaLOG 300 UNITS/3 ML VIAL SC PRN (17:52)
[2018-03-15] MEDS ORDERED: HYDROcodone/Acetaminophen 5/325 mg Tablet PO PRN (18:20)
[2018-03-15] MEDS ORDERED: Morphine 5 MG/ML SYRINGE SLOW IVP SCH (18:30)
[2018-03-15] MEDS: HYDROcodone/Acetaminophen 5/325 mg Tablet PO PRN (22:13)
[2018-03-16] MEDS: HYDROcodone/Acetaminophen 5/325 mg Tablet PO PRN ×3 (02:57→13:14)
[2018-03-16] MEDS ORDERED: Levothyroxine Sodium 100 MCG TAB PO SCH (06:00)
[2018-03-16 06:01] LABS: Anion Gap 12 mmol/L (10-20); BUN (Urea Nitrogen) Less than 4 mg/dL (7.0-18.7); Calc. Creatinine Clearance 154 mL/min (70-130); Calcium 7.7 mg/dL (7.8-10.44); Carbon Dioxide 22 mmol/L (22-29); Chloride 106 mmol/L (98-107); Estimated GFR-MDRD Greater than 90; Glucose 163 mg/dL (70-105); Potassium 3.5 mmol/L (3.5-5.1); Sodium 136 mmol/L (136-145)
--- NOTE | 2018-03-16 07:40 | PRG ---
DATE OF SERVICE: 03/16/2018. SUBJECTIVE: The patient is a 37-year-old female who was admitted by Dr. Villalta for diabetic ketoacidosis and was noted to have a missed AB at 6 weeks. Patient was transferred out from the ICU yesterday. In our conversation, the patient had asked for medical management of this missed AB and was given 800 mcg of Cytotec yesterday afternoon. This morning, the patient reports she continues to have some cramping, but nothing significant or consistent with imminent miscarriage. PHYSICAL EXAMINATION: VITAL SIGNS: Today blood pressure is 116/74, temperature 98.5, pulse of 84, respiratory rate of 16. GENERAL: She appears to be in no acute distress, resting with ease. LABORATORY DATA: Blood sugar this morning was 155. Sodium 136, potassium 3.5, creatinine 0.55, calcium 7.7. ASSESSMENT AND PLAN: The patient is a 37-year-old female followed by Dr. Villalta for diabetes and was just transferred out of the ICU yesterday. We have opted to actively manage her missed AB with medical management and is status post approximately 18 hours from her dose of Cytotec. Still no evidence of miscarriage at this time. About 50% of the time, the patient will miscarry within 24 hours and/or 75% of the time within 72 hours. This process should not hold up her discharge as this may take 1-2 more days to be completed. If the patient is discharged today, Ms. Macie Tapia should follow up with [facility] [employer] in the next 3-4 days. STACEY
[2018-03-16] MEDS ORDERED: Insulin Glargine 30 UNITS in Pre-Filled Syringe 1 EACH SC SCH (09:00)
[2018-03-16] MEDS: cefTRIAXone\\ROCEPHIN 2 GM in Sodium Chloride 0.9% 100 ML IVPB SCH (09:20)
[2018-03-16] MEDS ORDERED: Sodium Chloride 0.9% 10 ML ONE (09:29)
[2018-03-16] MEDS: HumaLOG 300 UNITS/3 ML VIAL SC PRN (11:16)
[2018-03-16 12:37] VITALS: BP 132/82; TEMP 98.7
--- NOTE | 2018-03-16 21:48 | DIS ---
DATE OF ADMISSION: 03/12/2108. DATE OF DISCHARGE: 03/16/2018. DISCHARGE DIAGNOSES: 1. Diabetic ketoacidosis, resolved. 2. Nausea and vomiting secondary to #1, resolved. 3. Bacteremia secondary to Escherichia coli. 4. Metabolic acidosis, resolving. 5. Hyponatremia, resolved. 6. Missed at 6 weeks' gestation. 7. Diabetes mellitus type 2, uncontrolled. CONSULTATIONS: Dr. Beth with OB Service and Dr. Messina with pulmonology critical care service. PERTINENT LABORATORY AND X-RAY FINDINGS: Sodium ranged between 124 and 137. CO2 level ranged betwee n 9 and 22. Hemoglobin A1c 15. Lactic acid level 1.2. TSH 3.45. Total beta hCG ranged between 11, 690 and 12,153. CBC showed a white blood cell count ranging between 6.1 and 12.2, hemoglobin ranged between 11.1 and 13.4. Beta hydroxybutyrate level ranged between 0.10 and 4.08. Blood culture 1 out of 3 positive for E. coli. Urine culture dated 03/12/2018 showed no growth at 48 hours. Pelvic ult rasound dated 03/12/2018 showed intrauterine gestational sac containing a pole without he art rate. HOSPITAL COURSE: The patient was initially admitted after presenting with severe abdominal pain with associated diabetic ketoacidosis and nausea and vomiting. The patient was placed on DKA protocol an d given aggressive IV fluid hydration. The patient was continued on insulin infusion with overall st abilization of glucose values. The patient was complaining of severe left lower quadrant abdominal p ain with a positive urine beta hCG at the time of admission. The patient underwent pelvic ultrasound showing evidence of gestational sac without heart rate detected. The patient was evalua jude by the OB Hospitalist Service with quantitative beta hCG showing a non-reassuring elevation over a 48- to 72-hour period. Due to the patient's presentation with abdominal pain and vaginal bleeding, threatened/missed was diagnosed. The patient was treated with Cytotec and monitored for cl inical decompensation. The patient continued therapy directed at her hyperglycemia with a hemoglobin A1c measured at 15. The patient was placed on subcutaneous insulin as well as metformin with overal l stable glucose values by the time of discharge. The patient was also noted with E. coli bacteremia , placed on IV Rocephin throughout the hospital course. The patient will transition to Levaquin 500 mg daily to complete an outpatient course of therapy. Overall, the patient did remain clinically sta ble during the hospital course, tolerating regular oral intake with resolution of abdominal pain. I have examined the patient at the time of discharge and discussed the pertinent laboratory findings as well as followup instructions. The patient verbalized understanding and agreement and ready for dis charge on 03/16/2018. DISCHARGE MEDICATIONS: 1. Metformin 1000 mg p.o. b.i.d. 2. Levofloxacin 500 mg 1 tab p.o. daily x5 days. 3. Levothyroxine 100 mcg p.o. daily. FOLLOWUP: The patient may follow up with her primary care provider at [facility] in [facility] within 3-5 days. The patient will follow up with [facility] within 3-5 days of d ischarge. CONDITION ON DISCHARGE: Stable. ACTIVITY: Ad nenita. DIET: ADA. CODE STATUS: Full. DISPOSITION: Home on 03/16/2018. Total time preparing and coordinating discharge is 35 minutes.
== END 2018-03-16 16:00 | disposition home or self-care (01) | DRG 781 ==
LOC: ERS 10:17 → T4-B 15:37 → IMCU/EMU 03-13 09:14 → 3SW 03-15 12:54
PROVIDERS: ADMIT Family Medicine; ATTEND Family Medicine
PROC: 3E0P7VZ Introduction of Hormone into Female Reproductive, Via Natural or Artificial Opening (ICD-10-PCS; principal; 2018-03-15)
DX: O24.111 Pre-existing type 2 diabetes mellitus, in pregnancy, first trimester (principal); E11.10 Type 2 diabetes mellitus with ketoacidosis without coma; E87.1 Hypo-osmolality and hyponatremia; O10.911 Unspecified pre-existing hypertension complicating pregnancy, first trimester; R78.81 Bacteremia; O99.281 Endocrine, nutritional and metabolic diseases complicating pregnancy, first trimester; E03.9 Hypothyroidism, unspecified; E86.0 Dehydration; O02.1 Missed abortion; B96.20 Unspecified Escherichia coli [E. coli] as the cause of diseases classified elsewhere; Z88.0 Allergy status to penicillin; Z79.84 Long term (current) use of oral hypoglycemic drugs; Z79.899 Other long term (current) drug therapy; Z3A.01 Less than 8 weeks gestation of pregnancy
CPT/HCPCS: 36415; 36416; 76856; 80048; 80053; 82010; 83036; 83605; 84443; 84702; 85007; 85025; 85027; 96360; 96361; 96374; 99292; A4216; J0696; J1815; J2270; J2405; J2550; J7050